=== PATIENT | female | born 1960 | race Caucasian/White ===

== ENCOUNTER 2021-04-17 21:02 | Inpatient (IN) | payer BC, SELFPAY ==
[2021-04-17 21:05] VITALS: BP 120/65; PULSE 73; RESP 16; TEMP 36.6; O2SAT 92; BMI 35.3
[2021-04-17 21:10] VITALS: BP 115/70; PULSE 74; RESP 18; O2SAT 96
[2021-04-17 21:20] LABS: Glucose Point of Care 82 mg/dL (70-110)
[2021-04-17 21:33] LABS: Basophils # 0.1 10^3/uL (0.0-0.1); Eosinophils # 0.3 10^3/uL (0.0-0.8); Eosinophils % 2.3 %; Hematocrit 40.9 % (37.0-47.0); Hemoglobin 13.7 g/dL (11.5-15.3); Lymphocytes # 3.4 10^3/uL (0.8-4.8); Lymphocytes % 31.1 %; Mean Corpuscular HGB Conc 33.5 g/dL (30.0-36.0); Mean Corpuscular Hemoglobin 30.5 pg (28.0-34.0); Mean Corpuscular Volume 91.1 fl (81-99); Mean Platelet Volume 10.5 fL (7.4-10.4); Monocytes # 0.6 10^3/uL (0.2-0.9); Monocytes % 5.6 %; Neutrophils # 6.45 10^3/uL (1.8-7.7); Neutrophils % 59.6 %; Nucleated Red Blood Cells % 0 %; Platelet Count 281 10^3/cmm (130-400); Red Blood Count 4.49 10^6/uL (4.1-5.3); Red Cell Distribution Width 12.5 % (12.1-15.1); White Blood Count 10.8 10^3/uL (4.0-10.0)
[2021-04-17 21:37] LABS: Add Urine Microscopic? NO; Charge for UA Resulting for Rev
[2021-04-17 21:41] LABS: Bilirubin Urine Neg (Negative); Blood Urine Neg (Negative); Glucose Urine UA Norm (Normal); Ketones Urine Negative (Negative); Leukocyte Esterase Urine Negative (Negative); Nitrate Urine Negative (Negative); Protein Urine Neg (Negative); Specific Gravity, Urine 1.005 (1.005-1.030); Urine Appearance Clear (CLEAR); Urine Color Straw (Yellow); Urobilinogen Urine Norm (Negative); pH Urine 7 (5-7)
[2021-04-17 21:51] LABS: Amphetamines Screen Urine Negative (Negative); Barbiturates Screen Urine Negative (Negative); Benzodiazepines Screen Urine Positive (Negative); Cocaine Screen Urine Negative (Negative); Opiate Screen Urine Negative (Negative); PCP Screen Urine Negative (Negative); THC Screen Urine Negative (Negative)
[2021-04-17 21:59] LABS: Alanine Aminotransferase 11 U/L (0-33); Albumin Level 3.9 g/dL (3.5-5.2); Alkaline Phosphatase 81 IU/L (35-105); Anion Gap 12.8 (5-19); Aspartate Amino Transferase 11 U/L (0-32); Blood Urea Nitrogen 12 mg/dL (6-20); Calcium 9.2 mg/dL (8.5-10.5); Carbon Dioxide 30 mmol/L (22-29); Chloride 104 mmol/L (98-107); Glomerular Filtration Rate 126.3 mL/min (90-130); Glucose 98 mg/dL (65-115); Osmolality Calculated 296 mOsm/kg (285-295); Potassium 3.8 mmol/L (3.5-5.1); Sodium 143 mmol/L (136-145); Total Bilirubin 0.2 mg/dL (0.15-1.2); Total Protein 6.9 g/dL (6.6-8.7)
[2021-04-17 22:00] LABS: Acetaminophen < 5.0 ug/mL (10-30); Salicylate < 0.3 mg/dL (3-10)
--- NOTE | 2021-04-17 22:25 | ED_ITS ---
Documented by User: Geoffrey Ga MD 04/18/21 11:00 HPI - General Adult General: Chief complaint: Overdose Stated complaint: OD Time Seen by Provider: 04/17/21 21:11 History of Present Illness: HPI narrative: Patient is a 60-year-old female with known suicidal ideation and past depression secondary to sister getting cancer and in the family presented to the emergency room after she intentionally ingested 30 tablets of 10 mg of Valium at 8 PM today. Per patient sister, she has become increasingly sad. Prior to today, patient has never had any episode of attempted suicide. Patient was noted to tell her sister I want to be with mom today and attempted suicide with 30 tablets of Valium. Patient denies any somnolence, fatigue, LOC, shortness of breath, respiratory depression. Patient also denies any other coingestions. Shee denies any homicidal ideation or any active hallucinations. Onset: 8pm Duration:1hr 30 minutes Location:home Severity:severe Review of Systems Narrative: Constitutional: No fever, no chills. HEENT: No vision changes CV: No chest pain, no palpitations PULM: no cough, no dyspnea. GI: No abdominal pain, no N/V/D. : No dysuria MSKEL: No muscle pain SKIN: No new rashes, no lesions. NEURO: No headache, no focal weakness. HEME: No visible bruises PSYCH: +depressed mood, +SI Physical Exam Narrative: EXAM NARRATIVE: Head: Atraumatic Eyes: PERRL, conjunctiva without injection ENT: Mucous membrane moist NECK: Supple, ROM intact LUNGS: LCTAB, no crackles/rhonchi CV: RRR ABDOMEN: Soft, nontender in all quadrants EXTREMITY: Normal ROM SKIN: No rash or erythema NEURO: Awake and alert c3, no focal motor deficits, moving all extremities, GCS 15 PSYCH: Depressed affect Course Vital Signs: Vital signs: Vital Signs Temperature 97.9 F 04/17/21 21:05 Pulse Rate 62 04/18/21 06:58 Respiratory Rate 16 04/18/21 06:58 Blood Pressure 127/80 04/18/21 06:58 Pulse Oximetry 99 04/18/21 06:58 MDM - General Adult MDM Narrative: Medical decision making narrative: 60-year-old female presenting to emergency room after 30 tablets of Valium 10 mg ingestion. On arrival, patient is AAO x3, GCS 15 fairly conversant at this time. HDS stable. EKG showing regular sinus rhythm at HT of 72. Normal axis. No ST elevations/depressions to suggest coronary occlusion. Normal DC, QRS, QT intervals. Lab evaluations wnl including other drugs of abuse/tylenol and salicylate. Case was discussed with poison center with recommendation for observation for 2 hours and 30 minutes given Valium's duration of action. Patient was observed in the emergency room there is no significant changes in mental status or respiratory status. Case was discussed with Dr. Kwasi Soto who informs me that currently there is no psychiatric beds. I have discussed case with sister who thinks that this is a suicide attempt. Patient was placed under involuntary hold. Lab Data: Labs: Lab Results 04/17/21 04/17/21 04/17/21 Range/Units 21:17 21:18 21:18 WBC 10.8 H (4.0-10.0) 10^3/ uL RBC 4.49 (4.1-5.3) 10^6/u L Hgb 13.7 (11.5-15.3) g/dL Hct 40.9 (37.0-47.0) % MCV 91.1 (81-99) fl MCH 30.5 (28.0-34.0) pg MCHC 33.5 (30.0-36.0) g/dL RDW 12.5 (12.1-15.1) % Plt Count 281 (130-400) 10^3/c mm MPV 10.5 H (7.4-10.4) fL Neut % (Auto) 59.6 % Lymph % (Auto) 31.1 % [place] % (Auto) 5.6 % Eos % (Auto) 2.3 % Baso % (Auto) 1.0 % Neut # (Auto) 6.45 (1.8-7.7) 10^3/u L Lymph # (Auto) 3.4 (0.8-4.8) 10^3/u L [place] # (Auto) 0.6 (0.2-0.9) 10^3/u L Eos # (Auto) 0.3 (0.0-0.8) 10^3/u L Baso # (Auto) 0.1 (0.0-0.1) 10^3/u L Nucleated RBC % (a uto) 0 % Nucleated RBCs # 0.0 /100WBC Sodium 143 (136-145) mmol/L Potassium 3.8 (3.5-5.1) mmol/L Chloride 104 (98-107) mmol/L Carbon Dioxide 30 H (22-29) mmol/L Anion Gap 12.8 (5-19) BUN 12 (6-20) mg/dL Creatinine 0.5 (0.5-0.9) mg/dL GFR Calculation 126.3 (90-130) mL/min Glucose 98 (65-115) mg/dL POC Glucose 82 (70-110) mg/dL Calculated Osmolal ity 296 H (285-295) mOsm/k g Calcium 9.2 (8.5-10.5) mg/dL Total Bilirubin 0.2 (0.15-1.2) mg/dL AST 11 (0-32) U/L ALT 11 (0-33) U/L Alkaline Phosphata se 81 (35-105) IU/L Total Protein 6.9 (6.6-8.7) g/dL Albumin 3.9 (3.5-5.2) g/dL Globulin 3.0 (1.3-4.6) g/dL Urine Color (Yellow) Urine Appearance (CLEAR) Urine pH (5-7) Ur Specific Gravit y (1.005-1.030) Urine Protein (Negative) Urine Glucose (UA) (Normal) Urine Ketones (Negative) Urine Blood (Negative) Urine Nitrate (Negative) Urine Bilirubin (Negative) Urine Urobilinogen (Negative) mg/dL Ur Leukocyte Thalia ase (Negative) Salicylates < 0.3 L (3-10) mg/dL Urine Opiates Scre en (Negative) ng/mL Acetaminophen < 5.0 L (10-30) ug/mL Ur Barbiturates Sc reen (Negative) ng/mL Ur Phencyclidine S crn (Negative) ng/mL Ur Amphetamines Sc reen (Negative) ng/mL U Benzodiazepines Scrn (Negative) ng/mL Urine Cocaine Scre en (Negative) ng/mL U Marijuana (THC) Screen (Negative) ng/mL 04/17/21 04/17/21 Range/Units 21:28 21:28 WBC (4.0-10.0) 10^3/ uL RBC (4.1-5.3) 10^6/u L Hgb (11.5-15.3) g/dL Hct (37.0-47.0) % MCV (81-99) fl MCH (28.0-34.0) pg MCHC (30.0-36.0) g/dL RDW (12.1-15.1) % Plt Count (130-400) 10^3/c mm MPV (7.4-10.4) fL Neut % (Auto) % Lymph % (Auto) % [place] % (Auto) % Eos % (Auto) % Baso % (Auto) % Neut # (Auto) (1.8-7.7) 10^3/u L Lymph # (Auto) (0.8-4.8) 10^3/u L [place] # (Auto) (0.2-0.9) 10^3/u L Eos # (Auto) (0.0-0.8) 10^3/u L Baso # (Auto) (0.0-0.1) 10^3/u L Nucleated RBC % (a uto) % Nucleated RBCs # /100WBC Sodium (136-145) mmol/L Potassium (3.5-5.1) mmol/L Chloride (98-107) mmol/L Carbon Dioxide (22-29) mmol/L Anion Gap (5-19) BUN (6-20) mg/dL Creatinine (0.5-0.9) mg/dL GFR Calculation (90-130) mL/min Glucose (65-115) mg/dL POC Glucose (70-110) mg/dL Calculated Osmolal ity (285-295) mOsm/k g Calcium (8.5-10.5) mg/dL Total Bilirubin (0.15-1.2) mg/dL AST (0-32) U/L ALT (0-33) U/L Alkaline Phosphata se (35-105) IU/L Total Protein (6.6-8.7) g/dL Albumin (3.5-5.2) g/dL Globulin (1.3-4.6) g/dL Urine Color Straw (Yellow) Urine Appearance Clear (CLEAR) Urine pH 7 (5-7) Ur Specific Gravit y 1.005 (1.005-1.030) Urine Protein Neg (Negative) Urine Glucose (UA) Norm (Normal) Urine Ketones Negative (Negative) Urine Blood Neg (Negative) Urine Nitrate Negative (Negative) Urine Bilirubin Neg (Negative) Urine Urobilinogen Norm (Negative) mg/dL Ur Leukocyte Thalia ase Negative (Negative) Salicylates (3-10) mg/dL Urine Opiates Scre en Negative (Negative) ng/mL Acetaminophen (10-30) ug/mL Ur Barbiturates Sc reen Negative (Negative) ng/mL Ur Phencyclidine S crn Negative (Negative) ng/mL Ur Amphetamines Sc reen Negative (Negative) ng/mL U Benzodiazepines Scrn Positive H (Negative) ng/mL Urine Cocaine Scre en Negative (Negative) ng/mL U Marijuana (THC) Screen Negative (Negative) ng/mL Discharge Plan Discharge Prescriptions: No Action Celexa 1 tab PO DAILY RF: 0 Prevacid 1 tab PO DAILY RF: 0 Valium 10 mg PO DAILY RF: 0 Coding Level of Care Code ED Supervisor Anodizing for Chg Fwd Documented by User: Fabian Melgar DO 04/18/21 05:33 HPI - General Adult General: Chief complaint: Overdose Stated complaint: OD Time Seen by Provider: 04/17/21 21:11 Course Vital Signs: Vital signs: Vital Signs Temperature 97.9 F 04/17/21 21:05 Pulse Rate 62 04/18/21 06:58 Respiratory Rate 16 04/18/21 06:58 Blood Pressure 127/80 04/18/21 06:58 Pulse Oximetry 99 04/18/21 06:58 MDM - General Adult MDM Narrative: Medical decision making narrative: 60-year-old female checked out to me by Dr. Ga at shift change. This young lady has had a medication overdose that was intentional. Has been placed on a 96-hour hold. She remains medically stable. We currently do not have a bed in our neuropsychiatric unit at this facility. We called a few other facilities without bed availability. We do believe that there will be discharges later this morning, at which point we will try to admit this lady if we have not found a facility by then. Lab Data: Labs: Lab Results 04/17/21 04/17/21 04/17/21 Range/Units 21:17 21:18 21:18 WBC 10.8 H (4.0-10.0) 10^3/ uL RBC 4.49 (4.1-5.3) 10^6/u L Hgb 13.7 (11.5-15.3) g/dL Hct 40.9 (37.0-47.0) % MCV 91.1 (81-99) fl MCH 30.5 (28.0-34.0) pg MCHC 33.5 (30.0-36.0) g/dL RDW 12.5 (12.1-15.1) % Plt Count 281 (130-400) 10^3/c mm MPV 10.5 H (7.4-10.4) fL Neut % (Auto) 59.6 % Lymph % (Auto) 31.1 % [place] % (Auto) 5.6 % Eos % (Auto) 2.3 % Baso % (Auto) 1.0 % Neut # (Auto) 6.45 (1.8-7.7) 10^3/u L Lymph # (Auto) 3.4 (0.8-4.8) 10^3/u L [place] # (Auto) 0.6 (0.2-0.9) 10^3/u L Eos # (Auto) 0.3 (0.0-0.8) 10^3/u L Baso # (Auto) 0.1 (0.0-0.1) 10^3/u L Nucleated RBC % (a uto) 0 % Nucleated RBCs # 0.0 /100WBC Sodium 143 (136-145) mmol/L Potassium 3.8 (3.5-5.1) mmol/L Chloride 104 (98-107) mmol/L Carbon Dioxide 30 H (22-29) mmol/L Anion Gap 12.8 (5-19) BUN 12 (6-20) mg/dL Creatinine 0.5 (0.5-0.9) mg/dL GFR Calculation 126.3 (90-130) mL/min Glucose 98 (65-115) mg/dL POC Glucose 82 (70-110) mg/dL Calculated Osmolal ity 296 H (285-295) mOsm/k g Calcium 9.2 (8.5-10.5) mg/dL Total Bilirubin 0.2 (0.15-1.2) mg/dL AST 11 (0-32) U/L ALT 11 (0-33) U/L Alkaline Phosphata se 81 (35-105) IU/L Total Protein 6.9 (6.6-8.7) g/dL Albumin 3.9 (3.5-5.2) g/dL Globulin 3.0 (1.3-4.6) g/dL Urine Color (Yellow) Urine Appearance (CLEAR) Urine pH (5-7) Ur Specific Gravit y (1.005-1.030) Urine Protein (Negative) Urine Glucose (UA) (Normal) Urine Ketones (Negative) Urine Blood (Negative) Urine Nitrate (Negative) Urine Bilirubin (Negative) Urine Urobilinogen (Negative) mg/dL Ur Leukocyte Thalia ase (Negative) Salicylates < 0.3 L (3-10) mg/dL Urine Opiates Scre en (Negative) ng/mL Acetaminophen < 5.0 L (10-30) ug/mL Ur Barbiturates Sc reen (Negative) ng/mL Ur Phencyclidine S crn (Negative) ng/mL Ur Amphetamines Sc reen (Negative) ng/mL U Benzodiazepines Scrn (Negative) ng/mL Urine Cocaine Scre en (Negative) ng/mL U Marijuana (THC) Screen (Negative) ng/mL 04/17/21 04/17/21 Range/Units 21:28 21:28 WBC (4.0-10.0) 10^3/ uL RBC (4.1-5.3) 10^6/u L Hgb (11.5-15.3) g/dL Hct (37.0-47.0) % MCV (81-99) fl MCH (28.0-34.0) pg MCHC (30.0-36.0) g/dL RDW (12.1-15.1) % Plt Count (130-400) 10^3/c mm MPV (7.4-10.4) fL Neut % (Auto) % Lymph % (Auto) % [place] % (Auto) % Eos % (Auto) % Baso % (Auto) % Neut # (Auto) (1.8-7.7) 10^3/u L Lymph # (Auto) (0.8-4.8) 10^3/u L [place] # (Auto) (0.2-0.9) 10^3/u L Eos # (Auto) (0.0-0.8) 10^3/u L Baso # (Auto) (0.0-0.1) 10^3/u L Nucleated RBC % (a uto) % Nucleated RBCs # /100WBC Sodium (136-145) mmol/L Potassium (3.5-5.1) mmol/L Chloride (98-107) mmol/L Carbon Dioxide (22-29) mmol/L Anion Gap (5-19) BUN (6-20) mg/dL Creatinine (0.5-0.9) mg/dL GFR Calculation (90-130) mL/min Glucose (65-115) mg/dL POC Glucose (70-110) mg/dL Calculated Osmolal ity (285-295) mOsm/k g Calcium (8.5-10.5) mg/dL Total Bilirubin (0.15-1.2) mg/dL AST (0-32) U/L ALT (0-33) U/L Alkaline Phosphata se (35-105) IU/L Total Protein (6.6-8.7) g/dL Albumin (3.5-5.2) g/dL Globulin (1.3-4.6) g/dL Urine Color Straw (Yellow) Urine Appearance Clear (CLEAR) Urine pH 7 (5-7) Ur Specific Gravit y 1.005 (1.005-1.030) Urine Protein Neg (Negative) Urine Glucose (UA) Norm (Normal) Urine Ketones Negative (Negative) Urine Blood Neg (Negative) Urine Nitrate Negative (Negative) Urine Bilirubin Neg (Negative) Urine Urobilinogen Norm (Negative) mg/dL Ur Leukocyte Thalia ase Negative (Negative) Salicylates (3-10) mg/dL Urine Opiates Scre en Negative (Negative) ng/mL Acetaminophen (10-30) ug/mL Ur Barbiturates Sc reen Negative (Negative) ng/mL Ur Phencyclidine S crn Negative (Negative) ng/mL Ur Amphetamines Sc reen Negative (Negative) ng/mL U Benzodiazepines Scrn Positive H (Negative) ng/mL Urine Cocaine Scre en Negative (Negative) ng/mL U Marijuana (THC) Screen Negative (Negative) ng/mL Discharge Plan Discharge Prescriptions: No Action Celexa 1 tab PO DAILY RF: 0 Prevacid 1 tab PO DAILY RF: 0 Valium 10 mg PO DAILY RF: 0 Coding Level of Care Code ED Supervisor Anodizing for Florina Espinoza
[2021-04-17 23:37] VITALS: BP 113/70; PULSE 62; RESP 16; O2SAT 94
[2021-04-18 02:26] VITALS: BP 96/41; PULSE 60; RESP 16; O2SAT 96
--- NOTE | 2021-04-18 03:07 | PC.NURSE ---
pt refuses to keep monitoring equipment on. when educated and advised of need for equipment pt will not accept continuous monitoring.
[2021-04-18 05:16] VITALS: BP 105/60; PULSE 55; RESP 16; O2SAT 98
[2021-04-18 06:58] VITALS: BP 127/80; PULSE 62; RESP 16; O2SAT 99
[2021-04-18 14:59] VITALS: BP 128/80; PULSE 80; RESP 18; TEMP 36.5; O2SAT 98
[2021-04-18 16:36] VITALS: BP 137/73; PULSE 71; RESP 16; TEMP 36.2; O2SAT 95
[2021-04-18 21:01] VITALS: BP 122/73; PULSE 65; RESP 17; TEMP 37.2; O2SAT 94
[2021-04-18] MEDS: nicotine 2 mg Gum BUCCAL (21:35)
[2021-04-18] MEDS: hyDROXYzine 25 mg Capsule 50 MG PO (21:36)
[2021-04-18] MEDS: trazodone 50 mg Tablet PO (21:36)
[2021-04-19 06:00] VITALS: BP 112/70; BP 122/73; PULSE 65; PULSE 82; RESP 17; RESP 20; TEMP 37.1; TEMP 37.2; O2SAT 94; O2SAT 96
[2021-04-19] MEDS: nicotine 2 mg Gum BUCCAL ×4 (10:59→21:35)
--- NOTE | 2021-04-19 11:09 | P.HP_ITS ---
Providers/Chief Complaint Admitting Physician: Kwasi Soto MD Primary Care Provider: Roger Barone MD Chief Complaint: OD HPI NPU History of Present Illness Ynes Silva is a 60 year old female who presented to the ER department the following report: Chief complaint: Overdose Stated complaint: OD Time Seen by Provider: 04/17/21 21:11 History of Present Illness: HPI narrative: Patient is a 60-year-old female with known suicidal ideation and past depression secondary to sister getting cancer and in the family presented to the emergency room after she intentionally ingested 30 tablets of 10 mg of Valium at 8 PM today. Per patient sister, she has become increasingly sad. Prior to today, patient has never had any episode of attempted suicide. Patient was noted to tell her sister I want to be with mom today and attempted suicide with 30 tablets of Valium. Patient denies any somnolence, fatigue, LOC, shortness of breath, respiratory depression. Patient also denies any other coingestions. Shee denies any homicidal ideation or any active hallucinations. Onset: 8pm Duration:1hr 30 minutes Location:home Severity:severe. She was admitted to the neuropsychiatric unit for definitive treatment of those issues. She presented to the appointment this morning reporting that she is never been hospitalized psychiatrically she is never services and initially stating she is never had any medications for mental health reasons. However she then identified that she been on Celexa 20 mg every day for 6 or 7 years and Valium for reasons that are unclear still at least off and on this was 26 years old. She does smoke about 2 packs of cigarettes a day, denies regular alcohol use, reports marijuana use every once in a while he denies any other illicit drug use or inappropriate use of benzodiazepines. Of note her UDS was only positive for benzodiazepines. She never been in rehab and denies ever having DUI. She denies ever having a suicide attempt. She reports that yesterday she was upset reflecting the loss of her mother over a year ago and her sister in the last 4 months and that she took 15 of her 10 mg Valium which he normally takes 10 mg a day. Her sister was really upset when she knew what happened 911 and she ended up in the emergency department. She was very resistant to the idea of calling what was going on a suicide attempt. She was very resistant to talking with her feelings or the way she has been as depression. She did eventually endorse having sadness and eventually accepted that he was talking about depressive issues. She also identified that she is struggling with treatment with the loss of 2 family members in the last 14 months or so. Psychiatric history: As above. Substance abuse history: As above. Family history: Patient denies mental health or addiction issues on either side of the family and denies suicide attempts or completions in the family. Developmental history: There were no problems with the , or delivery, learned to walk and talk and met developmental milestones on time, and denies need for speech therapy, learning support, emotional support or special education classes. Psychosocial history: She reports that her mother and father together when she was born and remain together. She reports his 3 older sisters that are product of the same union. She denies either of her parents having any other children. She reports her childhood was great and she denied emotional, physical or sexual abuse. She denied any significant traumas in her life. She reports that her highest grade she achieved was the ninth grade and she never got her GED. She endorses being heterosexual with her longest relationship being 37 years. She has been one time, and remains , she is a 35-year-old son and lives in [facility], she never been in the and endorsed being Sabianist. 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 She currently lives in a house with her . Legal history: Denies ever being in residential or being arrested. Medical history significant for obesity and hypercholesterol endorsing that she is been on a cholesterol reducing agent for 15 years. Meds NPU Home Medications Medication Instructions Recorded Confirmed Last Taken Type Celexa 1 tab PO DAILY 04/17/21 04/17/21 Unknown History Prevacid 1 tab PO DAILY 04/17/21 04/17/21 Unknown History Valium 10 mg PO DAILY 04/17/21 04/17/21 Unknown History Allergies Allergy/AdvReac Type Severity Reaction Status Date / Time Penicillins Allergy Unknown Verified 04/17/21 21:09 Mental Status Exam MSE Comments: This is a obese white female in hospital scrubs with adequate grooming and eye contact. No abnormal movements cooperative exam in no acute distress. Speech was normal rate and volume. Mood described as good affect appears euthymic. Thought process organized. Thought content: Patient denied suicidal homicidal ideation, there are no delusions reported or noted, she denies any auditory or visual hallucinations. Attention and concentration were intact and memory was limited but likely purposely so on certain subjects, but never formally tested. She alert and oriented x3. Insight and judgment are limited and impulse control impaired. Vitals/I&O/Wt Last Vital Signs Temp 98.8 F 04/19/21 06:00 Pulse 82 04/19/21 06:00 Resp 20 H 04/19/21 06:00 BP 112/70 04/19/21 06:00 Pulse Ox 96 04/19/21 06:00 Weight last 48 hrs Weight 86.183 kg Data NPU : 04/17/21 21:18 04/17/21 21:18 A&P Assessment and plan (1) Bereavement: Status: Acute (2) Suicide attempt: Status: Acute (3) Depression: Status: Acute Additional A&P Information This is a 60-year-old white female with a long history of treatment for depression or anxiety who presents with active bereavement, increased sadness and a suicide attempt open to medication changes. 1. Continue current medication. Increase Celexa to 40 mg p.o. every morning 2. Continue every 15 minute checks for safety. 3. Encourage individual, group and milieu therapies. 4. Encourage sober living treatment after discharge at the highest level of care to which he is willing to commit. 5. Patient desiring discharge immediately we will monitor for safety given the 96-hour hold. Involuntary Hold Information 96 Hour Hold: 96 Hour Involuntary Admission: Yes 96 Hour Hold Ending Date: 04/23/21 96 Hour Hold Ending Time: 12:01 Attestations NPU Medical Necessity Statement*: Inpatient hospitalization is medical necessary in the medically appropriate event and at this time. Will monitor medications and make changes as indicated. She will be in the hospital for over 2 midnights. Likely length of stay 3 to 5 days. Coding Level of Care Code Acute Turning Machine Operator Helper for Florina Espinoza Diagnoses Bereavement Z63.4 Suicide attempt T14.91XA Depression F32.9
[2021-04-19] MEDS: acetaminophen 325 mg Tablet 650 MG PO (13:04)
--- NOTE | 2021-04-19 13:04 | PC.NURSE ---
Patient at nurses station requesting something for her headache. PRN Tylenol administered.
[2021-04-19 14:00] VITALS: BP 97/64; PULSE 75; RESP 18; TEMP 36.5; O2SAT 94
[2021-04-19] MEDS: loperamide 2 mg Capsule PO (17:32)
[2021-04-19] MEDS: OLANZapine 5 mg ODT PO (18:31)
[2021-04-19 20:42] VITALS: BP 93/58; PULSE 84; RESP 17; TEMP 36.7; O2SAT 97
[2021-04-19] MEDS: trazodone 50 mg Tablet PO (22:10)
[2021-04-19] MEDS: hyDROXYzine 25 mg Capsule 50 MG PO (22:10)
--- NOTE | 2021-04-19 22:15 | PC.NURSE ---
Trazodone 50mg PO, Vistaril 50mgPO given for sleep and anxiety.
[2021-04-20 06:00] VITALS: BP 111/74; PULSE 72; RESP 17; TEMP 37.1; O2SAT 95
[2021-04-20] MEDS: citalopram 20 mg Tablet 40 MG PO (09:14)
[2021-04-20] MEDS: nicotine 2 mg Gum BUCCAL ×3 (10:24→22:53)
--- NOTE | 2021-04-20 10:57 | P.PN_ITS ---
Subjective NPU Subjective: Interval history: Patient presents today reporting that things are going better. She reports the increase in the medication has been beneficial. She reports that she is feeling more safe. She reports he is eating and sleeping okay. Mental Status Exam MSE Comments: This is a obese white female in hospital scrubs with adequate grooming and eye contact. No abnormal movements cooperative exam in no acute distress. Speech was normal rate and volume. Mood described as better, affect appears euthymic. Thought process organized. Thought content: Patient denied suicidal homicidal ideation, there are no delusions reported or noted, she denies any auditory or visual hallucinations. Attention and concentration were intact and memory was limited but likely purposely so on certain subjects, but never formally tested. She alert and oriented x3. Insight and judgment are limited and impulse control impaired. Vitals/I&O/Wt Last Vital Signs Temp 98.8 F 04/20/21 06:00 Pulse 72 04/20/21 06:00 Resp 17 04/20/21 06:00 BP 111/74 04/20/21 06:00 Pulse Ox 95 04/20/21 06:00 Data NPU : 04/17/21 21:18 04/17/21 21:18 A&P Additional A&P Information (1) Bereavement: (2) Suicide attempt: (3) Depression: Additional A&P Information This is a 60-year-old white female with a long history of treatment for depr ession or anxiety who presents with active bereavement, increased sadness and a suicide attempt open to medication changes. 1. Continue current medication. 2. Continue every 15 minute checks for safety. 3. Encourage individual, group and milieu therapies. 4. Encourage sober living treatment after discharge at the highest level of care to which she is willing to commit. 5. Patient desiring discharge immediately we will monitor for safety given the 96-hour hold. Involuntary Hold Information 96 Hour Hold: 96 Hour Involuntary Admission: Yes 96 Hour Hold Ending Date: 04/23/21 96 Hour Hold Ending Time: 12:01 Attestations NPU Medical Necessity Statement*: Inpatient hospitalization is medical necessary in the medically appropriate event and at this time. Will monitor medications and make changes as indicated. Likely length of stay 1-3 days. Coding Level of Care Code Acute Highway Engineering Teacher for Florina Espinoza
--- NOTE | 2021-04-20 12:21 | NPU.GN ---
[facility] Group Topic: Two true one false General Mood of Group: Patient did attend group, she was properly dressed, on time, and had good hygiene. In group we played a game called 2 true one false. Everyone had to come up with 2 true statements about their self and one false statement about their self, this was a way to get group members to openly talk about themselves. They are able to utilize positive self talk. The group interacted properly and openly. We discussed the purpose of NPU, ways to openly speak with the physician and discussed the purpose of neonatal social worker and safe discharge.
[2021-04-20 14:00] VITALS: BP 112/79; PULSE 85; RESP 18; TEMP 36.8; O2SAT 95
[2021-04-20] MEDS: hyDROXYzine 25 mg Capsule 50 MG PO ×2 (16:04→21:25)
--- NOTE | 2021-04-20 16:07 | PC.NURSE ---
PRN VISTARIL PRN VISTARIL 50 MG GIVEN PO PER PT C/O ANXIETY. PT REPORTS FEELING ANXIOUS DUE TO HER LEAVING AFTER VISITING WITH HER TODAY AND THAT SHE'S UPSET SHE WASN'T ABLE TO LEAVE WITH HIM. WILL CONTINUE TO MONITOR FOR MEDICATION EFFECTIVENESS.
[2021-04-20] MEDS: loperamide 2 mg Capsule PO (21:25)
[2021-04-20] MEDS: trazodone 50 mg Tablet PO (21:25)
[2021-04-20 21:30] VITALS: BP 131/79; PULSE 70; RESP 16; TEMP 36.9; O2SAT 94
[2021-04-21 06:00] VITALS: BP 113/72; PULSE 69; RESP 18; TEMP 36.6; O2SAT 94
--- NOTE | 2021-04-21 06:06 | P.DS_ITS ---
Diagnoses at Discharge Discharge Diagnosis (1) Bereavement: Status: Acute (2) Suicide attempt: Status: Acute (3) Depression: Status: Acute Reason for Visit Reason for Visit: OD Brief History: History of Present Illness Ynes Silva is a 60 year old female who presented to the ER department the following report: Chief complaint: Overdose Stated complaint: OD Time Seen by Provider: 04/17/21 21:11 History of Present Illness: HPI narrative: Patient is a 60-year-old female with known suicidal ideation and past depression secondary to sister getting cancer and in the family presented to the emergency room after she intentionally ingested 30 tablets of 10 mg of Valium at 8 PM today. Per patient sister, she has become increasingly sad. Prior to today, patient has never had any episode of attempted suicide. Patient was noted to tell her sister I want to be with mom today and attempted suicide with 30 tablets of Valium. Patient denies any somnolence, fatigue, LOC, shortness of breath, respiratory depression. Patient also denies any other coingestions. Shee denies any homicidal ideation or any active hallucinations. Onset: 8pm Duration:1hr 30 minutes Location:home Severity:severe. She was admitted to the neuropsychiatric unit for definitive treatment of those issues. She presented to the appointment this morning reporting that she is never been hospitalized psychiatrically she is never services and initially stating she is never had any medications for mental health reasons. However she then identified that she been on Celexa 20 mg every day for 6 or 7 years and Valium for reasons that are unclear still at least off and on this was 26 years old. She does smoke about 2 packs of cigarettes a day, denies regular alcohol use, reports marijuana use every once in a while he denies any other illicit drug use or inappropriate use of benzodiazepines. Of note her UDS was only positive for benzodiazepines. She never been in rehab and denies ever having DUI. She denies ever having a suicide attempt. She reports that yesterday she was upset reflecting the loss of her mother over a year ago and her sister in the last 4 months and that she took 15 of her 10 mg Valium which he normally takes 10 mg a day. Her sister was really upset when she knew what happened 911 and she ended up in the emergency department. She was very resistant to the idea of calling what was going on a suicide attempt. She was very resistant to talking with her feelings or the way she has been as depression. She did eventually endorse having sadness and eventually accepted that he was talking about depressive issues. She also identified that she is struggling with treatment with the loss of 2 family members in the last 14 months or so. Psychiatric history: As above. Substance abuse history: As above. Family history: Patient denies mental health or addiction issues on either side of the family and denies suicide attempts or completions in the family. Developmental history: There were no problems with the , or delivery, learned to walk and talk and met developmental milestones on time, and denies need for speech therapy, learning support, emotional support or special education classes. Psychosocial history: She reports that her mother and father together when she was born and remain together. She reports his 3 older sisters that are product of the same union. She denies either of her parents having any other children. She reports her childhood was great and she denied emotional, physical or sexual abuse. She denied any significant traumas in her life. She reports that her highest grade she achieved was the ninth grade and she never got her GED. She endorses being heterosexual with her longest relationship being 37 years. She has been one time, and remains , she is a 35-year-old son and lives in [facility], she never been in the and endorsed being Buddhist. 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 She currently lives in a house with her . Legal history: Denies ever being in care home or being arrested. Medical history significant for obesity and hypercholesterol endorsing that she is been on a cholesterol reducing agent for 15 years. Hospital Course Hospital Course She slowly acclimated to the individual, group and milieu therapies. Her Celexa was increased to 40 mg p.o. every morning and trazodone was started for sleep and she had marked improvement. At the outside hospital, patient had routine laboratory studies which were within normal limits except for few outliers. Additionally there was a general medical evaluation which was also within normal limits and revealed no new acute processes. Discharge Summary: At the time of discharge, she denied lethality or psychosis. Mood and anxiety were well managed. Patient endorsed a plan to avoid all drugs of abuse and follow-up with the aftercare recommendations of the treatment team. Patient was evaluated and deemed to be absent credible lethality, and had achieved the maximum benefit from an inpatient hospitalization, so was discharged. Involuntary Hold Information 96 Hour Hold: 96 Hour Involuntary Admission: Yes 96 Hour Hold Ending Date: 04/23/21 96 Hour Hold Ending Time: 12:01 Mental Status Exam MSE Comments: This is a obese white female in hospital scrubs with adequate grooming and eye contact. No abnormal movements cooperative exam in no acute distress. Speech was normal rate and volume. Mood described as better, affect appears euthymic. Thought process organized. Thought content: Patient denied suicidal homicidal ideation, there are no delusions reported or noted, she denies any auditory or visual hallucinations. Attention and concentration were intact and memory was limited but likely purposely so on certain subjects, but never formally tested. She alert and oriented x3. Insight and judgment are fair and impulse control limited but improving. Discharge Data Vitals: Last Vital Signs Temp 98.5 F 04/20/21 21:30 Pulse 70 04/20/21 21:30 Resp 16 04/20/21 21:30 BP 131/79 04/20/21 21:30 Pulse Ox 94 04/20/21 21:30 Discharge Plan Discharge Patient Disposition: Home Condition: Stable Prescriptions: New trazodone 50 mg Tablet 50 mg PO BEDTIME PRN (Reason: Insomnia) 30 Days Qty: 30 RF: 1 citalopram 20 mg Tablet 40 mg PO DAILY 30 Days Qty: 30 RF: 1 Continued Prevacid 1 tab PO DAILY RF: 0 Discontinued Celexa 1 tab PO DAILY RF: 0 Valium 10 mg PO DAILY RF: 0 Discharge Orders: Discharge Order (Routine); Ordered 04/21/21 Ordered By: Kwasi Soto Referrals: Caty Hernandez MD [Physician] - 05/05/21 10:20 am Discharge Diet: Regular Discharge Activity: Resume usual activity Patient Instructions: Opioid Safety Discharge Attestations NPU Time Spent in Discharge Care*: less than 30 min Specific Discharge Activities: Specific discharge activities: educating patient, discussing with bottle caser/social workers/dc planners, documenting/other paperwork and evaluating patient/reviewing data Coding Level of Care Code Acute Chg FW DC note Diagnoses Bereavement Z63.4 Suicide attempt T14.91XA Depression F32.9
[2021-04-21 07:44] VITALS: BP 113/72; PULSE 69; RESP 18; TEMP 36.6; O2SAT 94
[2021-04-21] MEDS: citalopram 20 mg Tablet 40 MG PO (08:45)
== END 2021-04-21 09:12 | disposition home or self-care (01) | DRG 918 ==
LOC: ER 04-18 05:25 → NP 04-19 04:07
PROVIDERS: Emergency Medicine; Admitting Provider Psychiatry & Neurology Psychiatry; Emergency Provider Emergency Medicine; PCP Physical Medicine & Rehabilitation; Visit Provider Psychiatry & Neurology Psychiatry
DX: T42.4X2A Poisoning by benzodiazepines, intentional self-harm, initial encounter (principal); F32.9 Major depressive disorder, single episode, unspecified; F17.210 Nicotine dependence, cigarettes, uncomplicated; E66.9 Obesity, unspecified; Z68.35 Body mass index [BMI] 35.0-35.9, adult; Z63.4 Disappearance and death of family member
CPT/HCPCS: 36416; 80053; 80306; 80307; 81003; 82962; 85025; 99285

== ENCOUNTER → 2021-06-15 16:02 | Outpatient (BNVA) | payer BC, SELFPAY | PROVIDERS: PCP Physical Medicine & Rehabilitation; Visit Provider Nurse Practitioner Family | DX: E04.1 Nontoxic single thyroid nodule (principal); Z12.39 Encounter for other screening for malignant neoplasm of breast; Z78.0 Asymptomatic menopausal state; Z13.6 Encounter for screening for cardiovascular disorders; R53.82 Chronic fatigue, unspecified; Z12.31 Encounter for screening mammogram for malignant neoplasm of breast; G47.00 Insomnia, unspecified; F41.9 Anxiety disorder, unspecified; F32.A Depression, unspecified | CPT/HCPCS: 80053; 80061; 82306; 82607; 84439; 84443; 85025 ==

== ENCOUNTER → 2021-07-21 12:10 | Outpatient (BNVA) | payer BC, SELFPAY | PROVIDERS: PCP Nurse Practitioner Family; Visit Provider Nurse Practitioner Family | DX: R60.9 Edema, unspecified (principal) | CPT/HCPCS: 80048 ==

== ENCOUNTER 2022-04-08 15:44 | Emergency (ER) | payer BC, SELFPAY ==
[2022-04-08 16:02] VITALS: BP 134/64; PULSE 87; RESP 18; TEMP 36.3; O2SAT 97; BMI 31.1
--- NOTE | 2022-04-08 16:50 | XR_ITS ---
WS: [id number] XR knee LT 3V* [id number] REASON FOR EXAM: injury FINDINGS: No fracture or dislocation. Medial and lateral knee joint spaces are mild to moderately narrowed. There is mild subchondral scler osis in the medial and lateral knee joint compartment. Enthesophytes of the tibial eminences. Patellofemoral joint space is intact. No significant subchondral bony change in the patella. XR/XR knee LT 3V* [id number] IMPRESSION: No acute abnormality. Mild to moderate osteoarthritis left knee as above.
--- NOTE | 2022-04-08 16:50 | XR_ITS ---
WS: [id number] XR knee RT 3V* [id number] REASON FOR EXAM: injury FINDINGS: No fracture or dislocation. Mild to moderate narrowing of the medial and lateral knee joint spaces with subchondral sclerosis. Enthesophytes of the tibial eminence. Patellofemoral joint space is unremarkable. No significant subchondral bone change in the patella. XR/XR knee RT 3V* [id number] IMPRESSION: No acute abnormality. Osteoarthritis in the right knee as above.
[2022-04-08 16:51] VITALS: BP 113/74; PULSE 79; RESP 18; O2SAT 96
--- NOTE | 2022-04-08 17:09 | W.ED.EXTPRO ---
HPI - Extremity Problem General: Chief complaint: Extremity Injury, Lower Stated complaint: swelling in knees Time Seen by Provider: 04/08/22 17:05 Source: patient Mode of arrival: ambulatory Limitations: no limitations History of Present Illness: 61-year-old female states that she has been having some swelling and pain to her anterior knees. States has been going on for months she been sitting crosslegged she states often for 6 months. She is able to ambulate she denies any fevers denies any worsening improving factors currently. Associated symptoms: Deny chest pain, fever(s) or rash Review of Systems Const: Denies: fever(s), chills, body aches or change in appetite Eyes: Denies: blurry vision or eye discomfort ENMT: Denies: throat pain or dental pain Card: Denies: chest pain Resp: Denies: dyspnea GI: Denies: abdominal pain, nausea, vomiting or diarrhea : Denies: dysuria Musc: Reports: extremity pain Skin/Breast: Denies: rash Neuro: Denies: headache(s) Psych: Denies: depression Arias/Lymph: Denies: easy bruising All/Imm: Denies: urticaria PFSH ED PFSH: Surgical History No pertinent past surgical history Family History Mother Cancer Sister Cancer Social History Smoking and tobacco status: current every day smoker cigarettes Packs smoked per day: 0.5 Alcohol intake: never Lives independently: No Household members: spouse Marital status: Current occupational status: unemployed Current gender identity: Female Special glen needs: No Physical Exam Const: COMMON NORMALS: no acute distress, patient oriented x3 and healthy appearing HENMT: COMMON NORMALS: normocephalic and atraumatic HEAD & SCALP: normocephalic and atraumatic Eye: COMMON NORMALS: Equal, round and reactive pupils present and EOMs intact bilaterally PUPIL: Yes Equal, round and reactive pupils present Neck/C-Spine: COMMON NORMALS: full ROM and supple Chest: COMMONS NORMALS: normal inspection of the chest and normal palpation of entire chest wall Resp: COMMON NORMALS: normal respiratory effort, No retractions, No use of accessory muscles and clear to auscultation bilaterally AUSCULTATION: clear to auscultation bilaterally Cardio: COMMON NORMALS: regular rate, regular rhythm and No murmurs present (Cardio) RATE: regular rate RHYTHM: regular rhythm GI: COMMON NORMALS: Normal to inspection, nondistended, normoactive bowel sounds present, Soft to palpation, non-tender and no masses PALPATION: Yes Soft to palpation Extremity: NARRATIVE EXTREMITY EXAM: TendernessSlight swelling to anterior knees no warmth to touch Neuro: COMMON NORMALS: patient oriented x3, moves all extremities and no focal motor deficits Psych: COMMON NORMALS: mental status grossly normal, Normal thought process present and cooperative THOUGHT PROCESS: Normal thought process present Skin: COMMON NORMALS: no rashes or lesions noted and no wounds GENERAL SKIN EXAM: no rashes or lesions noted Course Vital Signs: Vital signs: Vital Signs Temperature 97.4 F L 04/08/22 16:02 Pulse Rate 79 04/08/22 16:51 Respiratory Rate 18 04/08/22 16:51 Blood Pressure 113/74 04/08/22 16:51 Pulse Oximetry 96 04/08/22 16:51 Oxygen Delivery Me thod 04/08/22 16:51 MDM - Extremity (Nontraumatic) Medical Decision Making Patient presents here with bilateral knee swelling and anterior swelling her exam here is benign x-ray is normal she has no signs of DVT or septic joint or cellulitis she is to wear her compression stockings she is stable for discharge she is return if worsening. Lab Data Radiology Impressions Knee X-Ray 04/08/22 16:50 IMPRESSION: No acute abnormality. Osteoarthritis in the right knee as above. Discharge Plan Discharge Patient Disposition: Home Clinical Impression: Bilateral knee pain Qualifiers: Chronicity: acute Qualified Code(s): M25.561 - Pain in right knee Condition: Stable Prescriptions: No Action pravastatin 20 mg tablet 20 mg PO DAILY hydroxyzine HCl 10 mg tablet 10 mg PO Q8H MDD 30mg PRN (Reason: anxiety) Qty: 20 0RF Tremfya 100 mg/mL syringe SUBCUT hydrochlorothiazide 12.5 mg tablet 12.5 mg PO QAM Qty: 30 2RF cholecalciferol (vitamin D3) 50 mcg (2,000 unit) capsule 50 mcg PO DAILY Qty: 90 0RF Prevacid 1 tab PO DAILY citalopram 20 mg Tablet 40 mg PO DAILY 30 Days Qty: 30 1RF Discharge Orders: Discharge ED (Routine); Ordered 04/08/22 Ordered By: Shaina Salazar Referrals: Cheryl Lin FNP [Primary Care Provider] - 1-3 days Discharge Diet: Advance as tolerated Discharge Activity: Resume usual activity Patient Instructions: Knee Pain (ED) Coding Level of Care Code ED Community Outreach Specialist for Florina Espinoza
--- NOTE | 2022-04-08 17:28 | PC.NURSE ---
PT APPROACHED ME WHILE SPEAKING WITH ANOTHER PT STATING, CAN I LEAVE HE ALREADY TOLD ME I WAS DISCHARGED . INFORMED HER THAT I WOULD LIKE TO GIVE HER WRITTEN DC INSTRUCTIONS BUT NO SHE DID NOT HAVE TO STAY. PT THEN LEFT.
== END 2022-04-08 17:30 | disposition home or self-care (01) ==
PROVIDERS: Emergency Provider Emergency Medicine; PCP Nurse Practitioner Family
DX: M25.561 Pain in right knee (principal); M25.562 Pain in left knee; F17.210 Nicotine dependence, cigarettes, uncomplicated
CPT/HCPCS: 73562; 99283

== ENCOUNTER → 2022-06-08 10:57 | Outpatient (BNVA) | payer BC, SELFPAY | PROVIDERS: Visit Provider Nurse Practitioner Family | DX: R31.29 Other microscopic hematuria (principal) | CPT/HCPCS: 81003 ==

== ENCOUNTER → 2022-06-23 13:45 | Outpatient (BNVA) | payer BC, SELFPAY | PROVIDERS: Visit Provider Nurse Practitioner Family | DX: Z20.818 Contact with and (suspected) exposure to other bacterial communicable diseases (principal) | CPT/HCPCS: 87081 ==

== ENCOUNTER 2023-02-15 17:14 | Emergency (ER) | payer BC, SELFPAY ==
[2023-02-15 17:25] VITALS: BP 128/75; PULSE 109; RESP 18; TEMP 36.9; O2SAT 94
--- NOTE | 2023-02-15 17:32 | W.ED.FALL ---
HPI - Fall General: Chief Complaint: Fall Stated Complaint: fall, lt leg inj below knee to ankle Time Seen by Provider: 02/15/23 17:32 History of Present Illness: 62-year-old female comes in today for complaints of fall injury in the incident that occurred this afternoon. Patient reports that she was stepping up onto a ladder when she missed her step causing her to fall injuring her left knee and left lower leg. Patient reports pain in the proximal lower leg and knee. Patient has good range of motion. No obvious swelling or abrasion is noted. Associated symptoms-after fall: Denies chest pain Review of Systems General: Reports: 10 or more systems reviewed and unremarkable except in HPI and below Const: Denies: fever(s) Card: Denies: chest pain Resp: Denies: dyspnea GI: Denies: vomiting : Denies: difficulty voiding Musc: Reports: extremity pain Skin/Breast: Denies: rash PFSH ED PFSH: Medical History Microscopic hematuria Surgical History No pertinent past surgical history Family History Mother Cancer Sister Cancer Social History Smoking and tobacco status: current every day smoker cigarettes Packs smoked per day: 0.5 Alcohol intake: never Substance/Drug Use: current Substance/Drug use frequency: daily Other substance/drug use details: smoked marijuana a couple days ago Lives independently: No Household members: spouse Marital status: Current occupational status: unemployed Current gender identity: Female Special glen needs: No Physical Exam Const: COMMON NORMALS: alert HENMT: COMMON NORMALS: normocephalic HEAD & SCALP: normocephalic Neck/C-Spine: COMMON NORMALS: full ROM Resp: COMMON NORMALS: normal respiratory effort and clear to auscultation bilaterally AUSCULTATION: clear to auscultation bilaterally Cardio: COMMON NORMALS: regular rate and regular rhythm RATE: regular rate RHYTHM: regular rhythm GI: COMMON NORMALS: Soft to palpation PALPATION: Yes Soft to palpation : COMMON NORMALS: Yes no CVA tenderness BLADDER/KIDNEY EXAM: Yes no CVA tenderness Back/Pelvis: COMMON NORMALS: no CVA tenderness Extremity: LEFT LOWER EXTREMITY: Yes knee joint (Joint line tenderness minimal to no swelling. Good range of motion) Neuro: SENSORIUM/ORIENTATION: Yes alert Skin: COMMON NORMALS: turgor normal GENERAL SKIN EXAM: turgor normal Course Vital Signs: Vital signs: Vital Signs Temperature 98.5 F 02/15/23 17:25 Pulse Rate 109 H 02/15/23 17:25 Respiratory Rate 18 02/15/23 17:25 Blood Pressure 128/75 02/15/23 17:25 Pulse Oximetry 94 02/15/23 17:25 Oxygen Delivery Me thod Room Air 02/15/23 17:25 MDM - Fall Medical Decision Making Patient comes in today for complaints of injury to the left knee. On exam patient has joint line tenderness to the left knee. Distal pulses and sensation are intact. Patient was stepping up a ladder when she missed stepped causing her to fall and injure her left lower leg. On exam there is minimal swelling to the knee with no signs of abrasion or bruising. Differential diagnosis includes but not limited to tibial plateau fracture, meniscal injury, sprain. X-ray of the knee and tib-fib of the left lower extremity was unremarkable. Reviewed exam with patient with recommendations for treatment and follow-up. Patient reported understanding agreed to plan. Discharge Plan Discharge Patient Disposition: Home Clinical Impression: Sprain of knee/leg Qualifiers: Encounter type: initial encounter Laterality: left Qualified Code(s): S83.92XA - Sprain of unspecified site of left knee, initial encounter Condition: Stable Prescriptions: No Action pravastatin 20 mg tablet 20 mg PO DAILY hydroxyzine HCl 10 mg tablet 10 mg PO Q8H MDD 30mg PRN (Reason: anxiety) Qty: 20 0RF Tremfya 100 mg/mL syringe SUBCUT hydrochlorothiazide 12.5 mg tablet 12.5 mg PO QAM Qty: 30 2RF cholecalciferol (vitamin D3) 50 mcg (2,000 unit) capsule 50 mcg PO DAILY Qty: 90 0RF Prevacid 1 tab PO DAILY citalopram 20 mg Tablet 40 mg PO DAILY 30 Days Qty: 30 1RF Discharge Orders: Discharge ED (Routine); Ordered 02/15/23 Ordered By: Sanford Phoenix Referrals: Ashok Chapin MD [Primary Care Provider] - Discharge Diet: Usual diet Discharge Activity: Increase activity as tolerated Patient Instructions: Knee Sprain (ED) Activity Restrictions/Additional Instructions: Activity as tolerated. Use acetaminophen and/or ibuprofen for pain. Use ice packs for further pain relief. Use an elastic bandage for comfort. Increase activity as tolerated. Follow-up with primary care for further instructions. Return to ED for new concerns. Coding Level of Care Code ED Production Superintendent [employer] for Florina Espinoza
--- NOTE | 2023-02-15 17:35 | XRR_ITS ---
PROCEDURE INFORMATION: Exam: XR Left Tibia and Fibula Exam date and time: 02/15/2023 4:43 PM Age: 62 years old Clinical indication: Pain; Lower leg; Left; Additional info: Fall TECHNIQUE: Imaging protocol: Radiologic exam of the left tibia and fibula. Views: 2 views. AP and Lateral COMPARISON: CR (LOW EXM, ) 02/15/2023 4:40 PM FINDINGS: Bones/joints: There is normal alignment without fractures or dislocations. The limitedly assessed visualized knee and ankle regions show some degenerative changes. Soft tissues: There are no radiopaque foreign bodies. There is no radiographic soft tissue swelling. Notes: If there is further concern, recommend follow-up radiographs or bone scan for complete assessment. XR/XR tibia fibula LT 2V [id number] IMPRESSION: No fractures or dislocations of the left tibia and fibula.
--- NOTE | 2023-02-15 17:35 | XRR_ITS ---
PROCEDURE INFORMATION: Exam: XR Left Knee Exam date and time: 02/15/2023 4:40 PM Age: 62 years old Clinical indication: Pain; Knee; Left; Additional info: Injury TECHNIQUE: Imaging protocol: Radiologic exam of the left knee. Views: 3 views. AP [place] Lateral COMPARISON: No relevant prior studies available. FINDINGS: Bones/joints: There is normal alignment without fractures or dislocations. Tiny tibial spine degenerative osteophytes. The medial and lateral tibiofemoral compartments and patellofemoral compartment are unremarkable. There are no joint bodies. Soft tissues: There is no joint effusion. There are no radiopaque foreign bodies. There is no knee region soft tissue swelling. Notes: If there is further concern, recommend follow-up radiographs or MRI for complete assessment. XR/XR knee LT 3V* [id number] IMPRESSION: No fractures or dislocation of the left knee.
--- NOTE | 2023-02-15 18:05 | PC.NURSE ---
PT WAS UP FOR DC AND HAD ALREADY TALKED TO DR. MULLIGAN LEFT BEFORE SIGNING DC PAPERWORK
== END 2023-02-15 18:06 | disposition home or self-care (01) ==
PROVIDERS: Emergency Provider Nurse Practitioner Family; PCP Internal Medicine
DX: S83.92XA Sprain of unspecified site of left knee, initial encounter (principal); W11.XXXA Fall on and from ladder, initial encounter
CPT/HCPCS: 73562; 73590; 99283

== ENCOUNTER → 2023-08-04 14:55 | Outpatient (BNVA) | payer BC, SELFPAY | PROVIDERS: PCP Internal Medicine; Visit Provider Nurse Practitioner Family | DX: R43.2 Parageusia (principal); J02.9 Acute pharyngitis, unspecified; R53.83 Other fatigue | CPT/HCPCS: 87426 ==

== ENCOUNTER 2023-10-05 07:43 | Outpatient (CLI) | payer BC, SELFPAY ==
--- NOTE | 2023-10-05 07:45 | US_ITS ---
WS: [id number] RIGHT UPPER QUADRANT ULTRASOUND HISTORY: EPIGASTRIC PAIN COMPARISON: None available. Liver: 16.0 cm in length. Poorly visualized liver due to body habitus. Liver does appear slightly ech ogenic from hepatic steatosis. Portal Vein: Normal hepatopetal flow with monophasic waveform. Gallbladder: Normally distended gallbladder with no stones or wall thickening. CBD: 0.4 cm Pancreas: Normal size and echogenicity. Right kidney: 10.0 cm in length. Normal size and echogenicity. No hydronephrosis or mass. Aorta and IVC: Unremarkable abdominal aorta and IVC. No ascites. IMPRESSION: 1. Quality is limited by body habitus. 2. Mild hepatic steatosis. 3. Negative gallbladder.
== END 2023-10-05 07:44 | disposition home or self-care (01) ==
LOC: RAD 07:44
PROVIDERS: PCP Internal Medicine; Visit Provider Internal Medicine
DX: R10.13 Epigastric pain (principal); K76.0 Fatty (change of) liver, not elsewhere classified
CPT/HCPCS: 76705

== ENCOUNTER 2024-08-26 10:37 | Emergency (ER) | payer BC, SELFPAY ==
--- NOTE | 2024-08-26 10:40 | XR_ITS ---
WS: [id number] Portable AP upright chest, 08/26/2024 Clinical Data: fever Comparison: Two-view chest, 10/25/2006 Findings: No nodules, masses or effusions are seen. The heart is normal. The pulmonary vascularity is not increased. No pneumonia or pneumothorax is seen. XR/XR chest 1V portable [id number] Impression: Negative chest.
[2024-08-26 10:54] VITALS: BP 108/68; PULSE 99; RESP 18; TEMP 36.4; O2SAT 94; BMI 35.9
--- NOTE | 2024-08-26 11:33 | ED_ITS ---
HPI - General Adult General: Chief complaint: COVID symptoms Stated complaint: fever, congestion Time Seen by Provider: 08/26/24 10:57 Source: patient Mode of arrival: ambulatory Limitations: no limitations History of Present Illness: Patient is a 63-year-old female here for complaints of fevers, body aches, sore throat, headache, nasal congestion, and a cough over the past 3 days. 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 She arrives here with stable vital signs. Onset (ago): day(s) Severity: moderate Relieving factors: none Exacerbating factors: none Associated symptoms: Reports headache(s); Deny chest pain, dyspnea, rash or vomiting Treatments prior to arrival: none Related Data Home Medications Medication Instructions Recorded Confirmed pravastatin 20 mg tablet 20 mg PO DAILY 06/15/21 08/26/24 guselkumab 100 mg/mL subcutaneous 100 mg SUBCUT .[id number] 07/21/21 08/26/24 syringe (Tremfya) diazepam 5 mg tablet 5 mg PO BID PRN Anxiety 08/25/24 08/26/24 albuterol sulfate 90 mcg/actuation 2 puff inhalation Q46H PRN 08/26/24 08/26/24 aerosol inhaler Shortness Of Breath desloratadine 5 mg tablet 5 mg PO DAILY 08/26/24 08/26/24 fluticasone 250 mcg-salmeterol 50 1 inh inhalation BID 08/26/24 08/26/24 mcg/dose blistr powdr for inhalation montelukast 10 mg tablet 10 mg PO DAILY 08/26/24 08/26/24 ondansetron HCl 4 mg tablet 4 mg PO Q6H PRN Nausea 08/26/24 08/26/24 pantoprazole 40 mg tablet,delayed 40 mg PO DAILY 08/26/24 08/26/24 release Previous Rx's Medication Instructions Recorded doxycycline hyclate 100 mg tablet 100 mg PO BID 7 days #14 tabs 08/26/24 promethazine-DM 6.25 mg-15 mg/5 mL 5 ml PO Q4H PRN cough #118 mL 08/26/24 oral syrup Allergies Allergy/AdvReac Type Severity Reaction Status Date / Time Penicillins Allergy Unknown Verified 08/26/24 10:56 Review of Systems Const: Reports: fever(s) and body aches Eyes: Denies: change in vision, blurry vision, photophobia, eye redness, floaters or seeing flashes ENMT: Reports: throat pain, odynophagia and nasal congestion; Denies: ear or mastoid pain Card: Denies: chest pain Resp: Reports: non-productive cough and chest congestion; Denies: dyspnea, wheezing or hemoptysis GI: Denies: vomiting or diarrhea Musc: Denies: neck pain, back pain, extremity pain, extremity swelling, joint pain or joint swelling Skin/Breast: Denies: rash Neuro: Reports: headache(s); Denies: numbness in extremities, weakness in extremities, sensory changes or dizziness PFSH ED PFSH: Medical History Microscopic hematuria Surgical History No pertinent past surgical history Family History Mother Cancer Sister Cancer Social History Smoking and tobacco/nicotine status: current every day tobacco/nicotine user cigarettes Packs smoked per day: 0.5 Alcohol intake: never Substance/Drug Use: current Substance/Drug use frequency: daily Other substance/drug use details: smoked marijuana a couple days ago Lives independently: No Household members: spouse Marital status: Current occupational status: unemployed Current gender identity: Female Special glen needs: No Physical Exam Const: COMMON NORMALS: no acute distress, average body habitus, patient oriented x3, no limitations and well nourished GENERAL APPEARANCE: cooperative ORIENTATION/CONSCIOUSNESS: Yes awake, Yes oriented to person, Yes oriented to place and Yes oriented to time HENMT: FACE & SINUS: normal facial exam THROAT: tonsils normal Eye: GENERAL EYE: appearance normal, both eyes and all related structures Neck/C-Spine: COMMON NORMALS: no lymphadenopathy and no meningeal signs Resp: COMMON NORMALS: normal respiratory effort and clear to auscultation bilaterally AUSCULTATION: clear to auscultation bilaterally Cardio: COMMON NORMALS: regular rate and regular rhythm RATE: regular rate RHYTHM: regular rhythm Neuro: COMMON NORMALS: patient oriented x3 SENSORIUM/ORIENTATION: Yes oriented to person, Yes oriented to place and Yes oriented to time MENINGEAL SIGNS: Yes no meningeal signs Course Vital Signs: Vital signs: Vital Signs Temperature 97.6 F 08/26/24 10:54 Pulse Rate 99 08/26/24 10:54 Respiratory Rate 18 08/26/24 10:54 Blood Pressure 108/68 08/26/24 10:54 Pulse Oximetry 94 08/26/24 10:54 Oxygen Delivery Me thod Room Air 08/26/24 11:36 MDM - General Adult Medical Decision Making Patient appears in no acute distress. Her vital signs are stable. She is positive for COVID. She is outside the window for any benefit from Paxlovid. Her CXR is unremarkable. Discussed conservative therapies at home. Return to ED precautions given. Medical Records I reviewed the patient's medical records. Lab Data I reviewed the patient's lab results. Radiology Impressions Chest X-Ray 08/26/24 10:40 Impression: Negative chest. Laboratory Results Coronavirus (PCR) Positive (Negative) A 08/26/24 11:29 Influenza A (PCR) Negative (Negative) 08/26/24 11:29 Influenza Type B (PCR) Negative (Negative) 08/26/24 11:29 RSV (PCR) Negative (Negative) 08/26/24 11:29 All radiology interpretation(s) finalized by discharge Discharge Plan Discharge Patient Disposition: Home Clinical Impression: COVID Condition: Stable Prescriptions: No Action pravastatin 20 mg tablet 20 mg PO DAILY Tremfya 100 mg/mL syringe 100 mg SUBCUT .[id number] diazepam 5 mg tablet 5 mg PO BID PRN (Reason: Anxiety) doxycycline hyclate 100 mg tablet 100 mg PO BID 7 Days Qty: 14 0RF promethazine-DM 6.25-15 mg/5 mL syrup 5 ml PO Q4H PRN (Reason: cough) Qty: 118 0RF Rx Instructions: Do not exceed more than 30ml/24hour period (6 doses) fluticasone propion-salmeterol 250-50 mcg/dose blister with device 1 inh INHALATION BID ondansetron HCl 4 mg tablet 4 mg PO Q6H PRN (Reason: Nausea) desloratadine 5 mg tablet 5 mg PO DAILY pantoprazole 40 mg tablet,delayed release (DR/EC) 40 mg PO DAILY montelukast 10 mg tablet 10 mg PO DAILY albuterol sulfate 90 mcg/actuation HFA aerosol inhaler 2 puff INHALATION Q46H PRN (Reason: Shortness Of Breath) Discharge Orders: Discharge ED (Routine); Ordered 08/26/24 Ordered By: Mayela Almaraz Referrals: Ashok Chapin MD [Primary Care Provider] - Patient Instructions: COVID-19 (Coronavirus Disease 2019) (ED) Activity Restrictions/Additional Instructions: As we discussed, obtain lots of rest, push fluids, you may use Tylenol and Motrin as needed for fevers and bodyaches. You need to quarantine for a full 5 days of symptoms. After 5 days, if you are improving, you may return to work with mask wearing for an additional 5 days. Coding Level of Care Code ED Quality Process Auditor for Florina Espinoza
[2024-08-26 12:15] LABS: Influenza A NEGATIVE (Negative); Influenza B NEGATIVE (Negative); Respiratory Syncytial Virus Ce NEGATIVE (Negative)
[2024-08-26 12:24] LABS: Covid PCR Positive (Negative)
--- NOTE | 2024-08-26 12:26 | PC.PHAR ---
Pt was unaware she had an antibiotic and cough syrup sent in to her pharmacy today.
[2024-08-26 12:58] VITALS: BP 117/78; PULSE 80; RESP 16; O2SAT 95
== END 2024-08-26 13:00 | disposition home or self-care (01) ==
PROVIDERS: Emergency Medicine; Emergency Provider Physician Assistant; PCP Internal Medicine
DX: U07.1 COVID-19 (principal); Z11.52 Encounter for screening for COVID-19; F17.210 Nicotine dependence, cigarettes, uncomplicated
CPT/HCPCS: 71045; 87637; 99284